=== PATIENT | male | born 1965 | race Hispanic/Latino ===

== ENCOUNTER → 2023-07-09 | Outpatient (CLI) | payer SELFPAY ==
[~2023-07-09] MED LIST: IOHEXOL 350 MG/ML 100ML INFUS..BTL IV ONE
== END | disposition home or self-care (01) ==
LOC: RAH 07:14
PROVIDERS: ATTEND Internal Medicine Cardiovascular Disease
DX: R07.9 Chest pain, unspecified (principal)
CPT/HCPCS: 75574; Q9967